=== PATIENT | male | born 2000 | race Hispanic/Latino ===

== ENCOUNTER 2023-06-15 13:16 | Emergency (ER) | payer OTHER ==
[~2023-06-15] VITALS: Ht 177.8 cm; Wt 159.0 kg
[2023-06-15] MEDS: METOCLOPRAMIDE 10 MG/2 ML VIAL IVP ONE (13:55)
[2023-06-15] MEDS: DiphenhydrAMINE HCL 50 MG/ML VIAL IV ONE (13:56)
[2023-06-15] MEDS: KETOROLAC 30MG VIAL (30MG/ML) IVP ONE (13:56)
[2023-06-15 14:06] LABS: BASOPHILS # (AUTO) 0.02 K/uL (0.00-0.20); BASOPHILS % (AUTO) 0.2 % (0.0-5.0); EOSINOPHILS # (AUTO) 0.05 K/uL (0.00-0.70); EOSINOPHILS % (AUTO) 0.6 % (0.0-8.0); HEMATOCRIT 39.8 % (42-54); IMMATURE GRANULOCYTE ABSOLUTE 0.03 K/uL (0-1); LYMPHOCYTES # (AUTO) 1.6 K/uL (1.0-4.8); LYMPHOCYTES % (AUTO) 17.8 % (21.0-51.0); MEAN CORPUSCULAR HEMOGLOBIN 28.3 pg (27.0-33.0); MEAN CORPUSCULAR HGB CONC 34.9 g/dL (32.0-36.0); MEAN CORPUSCULAR VOLUME 80.9 fL (79-99); MONOCYTES # (AUTO) 0.5 K/uL (0.1-1.0); MONOCYTES % (AUTO) 5.2 % (3.0-13.0); NEUTROPHILS # (AUTO) 6.7 K/uL (1.8-7.7); NEUTROPHILS % (AUTO) 75.9 % (40.0-77.0); PLATELET COUNT (AUTO) 342 K/uL (130-400); RED BLOOD CELL COUNT(AUTO) 4.92 MIL/uL (4.50-6.20); RED CELL DISTRIBUTION WIDTH 13.2 % (11.0-15.5); WHITE BLOOD COUNT (AUTO) 8.8 K/uL (4.8-10.8)
[2023-06-15 14:15] LABS: ALBUMIN 3.4 g/dL (3.5-5.0); BILIRUBIN,TOTAL 0.3 mg/dL (0.2-1.0); CREATININE 0.8 mg/dL (0.5-1.3); POTASSIUM 4.1 mmol/L (3.5-5.1); TOTAL PROTEIN, SERUM 7.7 g/dL (6.0-8.3)
[2023-06-15] MEDS ORDERED: HYDR25CA PO (15:21)
[2023-06-15 15:25] VITALS: BP 139/68; PULSE 69; RESP 17; O2SAT 98
== END 2023-06-15 15:33 | disposition home or self-care (01) ==
LOC: EDH 13:16
DX: F41.9 Anxiety disorder, unspecified (principal); G47.00 Insomnia, unspecified; R20.0 Anesthesia of skin; R51.9 Headache, unspecified; I10 Essential (primary) hypertension
CPT/HCPCS: 99285; 96374; 70450; 71045; 96375; 84484; 80053; 85025; 36415; 93005; J1200; J1885; J2765

== ENCOUNTER 2023-07-12 13:14 | Emergency (ER) | payer OTHER ==
[~2023-07-12] VITALS: Ht 177.8 cm; Wt 151.0 kg
[~2023-07-12 13:14] MED LIST: HYDR25CA PO
[2023-07-12 16:00] VITALS: BP 146/80; PULSE 69; RESP 18; O2SAT 99
[2023-07-12] MEDS ORDERED: HYDR-3421 PO (19:38)
[2023-07-12] MEDS ORDERED: IBUP-2077 PO (19:38)
[2023-07-12] MEDS: HYDROXYZINE 25 MG TABLET PO ONE (21:21)
[2023-07-12] MEDS: IBUPROFEN 800 MG TAB PO ONE (21:21)
== END 2023-07-12 21:04 | disposition home or self-care (01) ==
LOC: EDH 13:14
DX: R51.9 Headache, unspecified (principal); F41.9 Anxiety disorder, unspecified; H57.11 Ocular pain, right eye; I10 Essential (primary) hypertension; E03.9 Hypothyroidism, unspecified
CPT/HCPCS: 70450; 93005